=== PATIENT | female | born 1990 | race Two or more races ===

== ENCOUNTER → 2023-12-31 | Outpatient (CLI) | payer BC ==
[~2023-12-31] MED LIST: fentaNYL CITRATE 100 MCG/2 ML VL ONE
[2023-12-31 09:32] LABS: Alanine Aminotransferase 13 U/L (7-40); Albumin 4.9 g/dL (3.2-4.8); Alkaline Phosphatase 100 U/L (46-116); Anion Gap 8 (5-15); Aspartate Aminotransferase 18 U/L (13-40); BUN/Creatinine Ratio 13.9 (10.0-20.0); Bilirubin, Total 0.4 mg/dL (0.2-1.0); Blood Urea Nitrogen 10 mg/dL (9-23); Calcium 9.8 mg/dL (8.5-10.1); Carbon Dioxide 24 mmol/L (20-30); Chloride 107 mmol/L (98-107); Glucose 79 mg/dL (74-106); Sodium 139 mmol/L (136-145); Total Protein 9.4 g/dL (5.7-8.2)
[2023-12-31 10:12] VITALS: BP 116/73; PULSE 113; RESP 17; O2SAT 100
[2023-12-31 10:44] VITALS: BP 112/69; PULSE 102; RESP 16; O2SAT 99
[2023-12-31 11:14] VITALS: BP 109/72; PULSE 122; RESP 17; O2SAT 97
[2023-12-31 11:44] VITALS: BP 107/68; PULSE 116; RESP 17; O2SAT 97
[2023-12-31 12:15] VITALS: BP 102/69; PULSE 106; RESP 18; O2SAT 99
[2023-12-31 12:45] VITALS: BP 105/68; PULSE 97; RESP 18; O2SAT 99
== END | disposition home or self-care (01) ==
LOC: XYW 08:14 → EDUNIT# 09:00
DX: R80.9 Proteinuria, unspecified (principal); Z79.899 Other long term (current) drug therapy; Z98.890 Other specified postprocedural states
CPT/HCPCS: 36415; 50200; 76942; 80053; 88300; J3010; 99152; 99153